=== PATIENT | female | born 1960 | race Two or more races ===

== ENCOUNTER 2019-01-08 04:04 | Emergency (ER) | payer OTHER ==
[~2019-01-08] VITALS: Ht 162.6 cm; Wt 52.2 kg
--- NOTE | 2019-01-08 04:12 | NUR ---
PT MASSIEL FROM [facility] FOR HYPOTENSTION, DIZZINESS AND BRIGHT RED BLOOD IN COLOSTOMY BAG. PT AXO4. BRIGHT RED BLOOD NOTED IN COLOSTOMY BAG. PT RESPIRATIONS EVEN AND UNLABORED. PT PUT ON THE DOCUMENT REVIEW ATTORNEY AND PULSE OX. PT HYPOTENSIVE ON THE MONITOR. ER AWARE.
--- NOTE | 2019-01-08 04:15 | NUR ---
CONCRETE SAW OPERATOR AT BEDSIDE. LABS SENT.
[2019-01-08] MEDS ORDERED: ONDANSETRON HCL/PF 4 MG/2 ML VIAL ONE (04:25)
[2019-01-08] MEDS ORDERED: FAMOTIDINE/PF INJ 20 MG/2 ML VIAL IV ONE ×2 (04:25→04:30)
[2019-01-08] MEDS ORDERED: IV NS 0.9% 1,000 ML BAG IV ONE (04:30)
[2019-01-08] MEDS ORDERED: PIPERACILLIN /TAZOBACTAM 3.375 G in IV D5W 50 ML IV ONE (04:30)
[2019-01-08] MEDS ORDERED: ONDANSETRON HCL/PF - ER 4 MG/2 ML VIAL IV ONE (04:30)
--- NOTE | 2019-01-08 04:30 | NUR ---
XRAY AT BEDSIDE.
--- NOTE | 2019-01-08 04:34 | NUR ---
EKG AT BEDSIDE.
[2019-01-08 04:39] LABS: CALCIUM, SERUM 7.1 mg/dL (8.5-10.1); CARBON DIOXIDE 20 mmol/L (21-32); CHLORIDE 97 mmol/L (98-107); CREATININE 1.8 mg/dL (0.6-1.3); GLUCOSE 82 mg/dL (74-106); POTASSIUM 3.5 mmol/L (3.5-5.1); SODIUM SERUM 127 mmol/L (136-145); UREA NITROGEN, BLOOD 28 mg/dL (7-18)
[2019-01-08 04:42] LABS: HEMATOCRIT 28 % (33-45); HEMOGLOBIN 9.3 g/dL (11.5-14.8); MEAN CORPUSCULAR VOLUME 76 fL (82-100); RED BLOOD CELL COUNT(AUTO) 3.62 MIL/uL (4.0-5.2); WHITE BLOOD COUNT (AUTO) 5.8 K/uL (4.3-11.0)
[2019-01-08] MEDS ORDERED: PIPERACILLIN /TAZOBACTAM 3.375 G VIAL IV ONE (04:42)
[2019-01-08 04:43] LABS: BASOPHILS # (AUTO) 0.1 /CMM (0.0-0.2); BASOPHILS % (AUTO) 1.5 % (0.0-2.0); EOSINOPHILS % (AUTO) 3.9 % (0.0-6.0); LYMPHOCYTES # (AUTO) 0.5 /CMM (0.8-4.8); LYMPHOCYTES % (AUTO) 8.3 % (20.0-44.0); MEAN CORPUSCULAR HGB CONC 34 g/dl (31.0-36.0); MONOCYTES # (AUTO) 0.5 /CMM (0.1-1.30); MONOCYTES % (AUTO) 9.3 % (2.0-12.0); NEUTROPHILS # (AUTO) 4.4 /CMM (1.8-8.9); PLATELET COUNT (AUTO) 93 /CMM (150-450)
[2019-01-08 04:52] LABS: ALANINE AMINOTRANSFERASE 19 U/L (12-78); ALBUMIN 1.6 g/dL (3.4-5.0); ALKALINE PHOSPHATASE 122 U/L (46-116); ASPARTATE AMINOTRANSFERASE 19 U/L (15-37); BILIRUBIN,DIRECT 0.1 mg/dL (0.0-0.2); BILIRUBIN,TOTAL 0.3 mg/dL (0.2-1.0); THYROID STIMULATING HORMONE 6.892 uIU/mL (0.358-3.74); TOTAL PROTEIN, SERUM 4.8 g/dL (6.4-8.2)
--- NOTE | 2019-01-08 04:59 | NUR ---
PT HYPOTENSIVE ON THE MONITOR. ER AWARE.
[2019-01-08] MEDS ORDERED: IV D5/0.45 NACL 1,000 ML IV ONE (05:00)
[2019-01-08] MEDS ORDERED: PANTOPRAZOLE 80 MG in IV NS 0.9% 500 ML IV ONE (05:00)
--- NOTE | 2019-01-08 05:00 | NUR ---
PT TAKEN TO CT.
--- NOTE | 2019-01-08 05:10 | NUR ---
PT RETURNED FROM CT.
[2019-01-08] MEDS ORDERED: PANTOPRAZOLE 40 MG VIAL ONE (05:16)
[2019-01-08] MEDS ORDERED: IV NS 0.9% 1,000 ML IV PRN (05:30)
--- NOTE | 2019-01-08 05:42 | NUR ---
SPOKE WITH JENNIFER FROM [facility], WILL CALL BACK WITH INFORMATION
--- NOTE | 2019-01-08 05:48 | NUR ---
CALLED DR CARTER, LEFT A VOICEMAIL.
--- NOTE | 2019-01-08 05:59 | NUR ---
URINE SAMPLE OBTAINED AND SENT TO LAB.
[2019-01-08] MEDS ORDERED: LEVO25TA7 PO (06:07)
[2019-01-08] MEDS ORDERED: OMEP20TA20 PO (06:07)
[2019-01-08] MEDS ORDERED: ZINC220T PO (06:07)
[2019-01-08] MEDS ORDERED: MAGN400O21 PO (06:07)
[2019-01-08] MEDS ORDERED: THIA100T70 PO (06:07)
[2019-01-08] MEDS ORDERED: FOLI0.8T2 PO (06:07)
[2019-01-08] MEDS ORDERED: SENN-168 PO (06:07)
[2019-01-08] MEDS ORDERED: TRAM50TA2 PO (06:07)
[2019-01-08] MEDS ORDERED: BISA10SU61 RC (06:07)
[2019-01-08] MEDS ORDERED: SODI100037 PO (06:07)
[2019-01-08] MEDS ORDERED: LORA-259 PO (06:07)
[2019-01-08] MEDS ORDERED: MORP15TA PO (06:07)
[2019-01-08] MEDS ORDERED: FERR325T23 PO (06:07)
[2019-01-08] MEDS ORDERED: LISI10TA5 PO (06:07)
[2019-01-08] MEDS ORDERED: ASCO500T9 PO (06:07)
[2019-01-08] MEDS ORDERED: POLY255P19 PO (06:07)
[2019-01-08] MEDS ORDERED: ESCI10TA PO (06:07)
[2019-01-08] MEDS ORDERED: FLUT16SP BNOSTRILS (06:07)
[2019-01-08] MEDS ORDERED: SIME80TA15 PO (06:07)
[2019-01-08] MEDS ORDERED: FOLI1TAB16 PO (06:07)
[2019-01-08] MEDS ORDERED: FAMO-131 PO (06:07)
[2019-01-08] MEDS ORDERED: CALC-883 PO (06:07)
--- NOTE | 2019-01-08 06:13 | NUR ---
PT RESTING IN BED COMFORTABLY, NAD NOTED. WILL CONTINUE TO MONITOR.
[2019-01-08 06:58] LABS: APPEARANCE,URINE CLEAR (CLEAR); BILIRUBIN,URINE NEGATIVE (NEGATIVE); BLOOD, URINE NEGATIVE Ery/uL (NEGATIVE); COLOR,URINE YELLOW (YELLOW); KETONES,URINE NEGATIVE (NEGATIVE); LEUKOCYTE ESTERASE ,URINE 1+ (NEGATIVE); NITRITE, URINE NEGATIVE (NEGATIVE); PROTEIN,URINE NEGATIVE (NEGATIVE); UGLUCOSE NEGATIVE (NEGATIVE); UROBILINOGEN,URINE 0.2 EU/dL (0.2)
[2019-01-08 07:01] LABS: BACTERIA,URINE Rare /HPF (None Seen); RBC,URINE NONE SEEN /HPF (0-2); SQUAMOUS EPITHELIAL CELL,UR Few /HPF (None Seen)
--- NOTE | 2019-01-08 07:21 | NUR ---
REPORT GIVEN TO KIARA MARTIN FOR TY.
[2019-01-08] MEDS ORDERED: ALBUMIN 25% 12.5 GM/50 ML BOTTLE IV ONE (07:30)
[2019-01-08] MEDS ORDERED: ALBUMIN 25% 100 ML IV ONE (07:39)
[2019-01-08] MEDS ORDERED: CEFTRIAXONE 1 G in IV D5W 50 ML IV SCH (08:30)
--- NOTE | 2019-01-08 08:46 | NUR ---
DR CARTER CAME IN TO SEE PT SAYING THAT THE CONTRACT [facility]WEEN [facility] WAS CANCELLED LAST NIGHT,WANTS PATIENT TX TO [facility]
--- NOTE | 2019-01-08 08:48 | NUR ---
REPORT GIVEN TO MS GONZALEZ OF TELE UNIT
--- NOTE | 2019-01-08 09:52 | NUR ---
PT RESTING IN BED COMFORTABLY, NAD NOTED. WILL CONTINUE TO MONITOR.
--- NOTE | 2019-01-08 11:30 | NUR ---
CALLED [facility], CELSO MIKEMAIL REGARDING PT ADMITTION. Addendum: 01/08/19 at 1132 by ROMELIA [phone]
--- NOTE | 2019-01-08 12:24 | NUR ---
PER [facility] CONTRACT WITH [facility] IS CANCELLED, ALL PATIENTS GO TO [facility].
--- NOTE | 2019-01-08 13:36 | NUR ---
PT RESTING IN BED COMFORTABLY, NAD NOTED. HOOKED TO MONITOR, KEPT WARM AND SAFE. WILL CONTINUE TO MONITOR.
--- NOTE | 2019-01-08 14:01 | NUR ---
TRANSFER INFO: [facility] DIRECT ADMIT TO ROOM 201-B RN (HILARY) FOR REPORT [phone] [facility] ETA [id number]
--- NOTE | 2019-01-08 14:15 | NUR ---
REPORT GIVEN TO ROGELIO MARTIN ([facility] TELE UNIT)
--- NOTE | 2019-01-08 15:22 | NUR ---
PT RESTING IN BED COMFORTABLY, NAD NOTED. HOOKED TO MONITOR, KEPT WARM AND SAFE. WILL CONTINUE TO MONITOR.
[2019-01-08 16:00] VITALS: BP 85/65
--- NOTE | 2019-01-08 16:06 | NUR ---
Patient discharged to [facility] in stable condition. Written and verbal after care instructions given. Patient verbalizes understanding of instruction. Pt will be transferred to [facility].
== END 2019-01-08 16:13 | disposition short-term general hospital (02) ==
LOC: ER 04:16
DX: E11.22 Type 2 diabetes mellitus with diabetic chronic kidney disease (principal); I12.0 Hypertensive chronic kidney disease with stage 5 chronic kidney disease or end stage renal disease; N18.6 End stage renal disease; E86.0 Dehydration; K43.9 Ventral hernia without obstruction or gangrene; K21.9 Gastro-esophageal reflux disease without esophagitis; R53.1 Weakness; F25.9 Schizoaffective disorder, unspecified; Z93.3 Colostomy status
CPT/HCPCS: 36415; 71045; 74176; 80048; 80076; 81001; 82140; 82550; 82962; 83605; 83735; 84439; 84443; 84484; 85025; 85730; 86850; 87040 ×2; 87077; 87081; 87086; 87186; 93005; 96361; 96365; 96366; 96367; 96374; 96375; 99285; C9113; J0696; J2405; J2543 ×2; J3490 ×2; J7030 ×3; J7040; J7060 ×2; P9047; 81000-TC